=== PATIENT | male | born 1970 | race Caucasian/White ===

== ENCOUNTER → 2020-03-28 16:28 | Outpatient (CLI) | payer MEDICARE, SELFPAY ==
[2020-03-28 17:22] LABS: Absolute Lymphocyte Count 4.77 X10^3/uL (0.83-4.51); Absolute Neutrophil Count 6.4 X10^3/uL (2.0-7.7); Basophil# 0.05 X10^3/uL; Basophil% 0.4 % (0-1); Eosinophils% 0.8 % (0-5); Hematocrit 45.5 % (40-54); Hemoglobin 15.1 g/dL (13.0-16.5); Lymphocyte # 4.77 X10^3/ul (4.0); Lymphocyte % 37.7 % (19-41); Mean Corp Hgb Conc 33.2 g/dL (32-36); Mean Corpuscular Hgb 30.3 pg (27.0-32.0); Mean Corpuscular Volume 91.4 fL (80-94); Mean Platelet Vol. 10.4 fl (6.2-12.0); Monocyte# 1.29 X10^3/uL; Monocyte% 10.2 % (0-10); NRBC Flagged by Analyzer 0 % (0-5); Neutrophil # 6.39 X10^3/uL (2.7-7.7); Neutrophil % 50.6 % (47-70); Platelet Count 236 K/mm3 (150-450); RBC Distribution Width CV 12.7 % (11.6-14.6); Red Blood Count 4.98 M/mm3 (4.6-6.2); White Blood Count 12.6 K/mm3 (4.4-11.0)
[2020-03-28 17:44] LABS: ALB/GLOB Ratio 0.8 RATIO (0.9-2.4); AST(SGOT) 35 U/L (15-37); Alanine Aminotransfer ALT/SGPT 54 U/L (16-61); Albumin, Serum 3.7 g/dL (3.2-5.0); Alkaline Phosphatase 115 U/L (45-117); Anion Gap 6 (5-15); BUN 24 mg/dL (7-18); BUN/Creat Ratio 22.4 RATIO (10-20); CRP 3.55 mg/L (0.0-3.0); Calcium,Total 8.9 mg/dL (8.5-10.1); Chloride 109 mmol/L (98-107); Creatinine, Serum 1.07 mg/dL (0.70-1.30); EST Glomerular Filtration Rate 78 mL/min (>60); Est Glom Filt Rate - Afr Amer 95 mL/min (>60); Globulin 4.6 g/dL (2.2-4.2); Glucose 92 mg/dL (74-106); Potassium 4.1 mmol/L (3.5-5.1); Protein, Total 8.3 g/dL (6.4-8.2); Sodium Level 139 mmol/L (136-145)
[2020-03-28 17:58] LABS: Erythrocyte Sedimentation Rate 18 mm/hr (0-15)
== END ==
PROVIDERS: PCP Family Medicine; Visit Provider Family Medicine
DX: M54.9 Dorsalgia, unspecified (principal); G89.29 Other chronic pain; Z87.39 Personal history of other diseases of the musculoskeletal system and connective tissue
CPT/HCPCS: 36415; 80053; 85025; 85652; 86140

== ENCOUNTER 2021-06-25 10:19 | Outpatient (CLI) | payer MEDICARE, MEDICAID, SELFPAY ==
[2021-06-25 10:48] LABS: Absolute Lymphocyte Count 3.91 X10^3/uL (0.83-4.51); Absolute Neutrophil Count 3.5 X10^3/uL (2.0-7.7); Basophil# 0.06 X10^3/uL; Basophil% 0.7 % (0-1); Eosinophil# 0.09 X10^3/uL; Hematocrit 44.1 % (40-54); Hemoglobin 14.8 g/dL (13.0-16.5); Lymphocyte # 3.91 X10^3/ul (0.83-4.51); Lymphocyte % 44.2 % (19-41); Mean Corp Hgb Conc 33.6 g/dL (32-36); Mean Corpuscular Hgb 31.3 pg (27.0-32.0); Mean Corpuscular Volume 93.2 fL (80-94); Mean Platelet Vol. 10.3 fl (6.2-12.0); Monocyte# 1.24 X10^3/uL; NRBC Flagged by Analyzer 0 % (0-5); Neutrophil # 3.52 X10^3/uL (2.7-7.7); Neutrophil % 39.8 % (47-70); Platelet Count 171 K/mm3 (150-450); RBC Distribution Width CV 14.4 % (11.6-14.6); RBC Distribution Width SD 49.7 fl (35.1-43.9); Red Blood Count 4.73 M/mm3 (4.6-6.2); White Blood Count 8.9 K/mm3 (4.4-11.0)
[2021-06-25 11:05] LABS: Hemoglobin A1c 5.3 % (3.8-5.6)
[2021-06-25 11:08] LABS: ALB/GLOB Ratio 0.7 RATIO (0.9-2.4); AST(SGOT) 110 U/L (15-37); Alanine Aminotransfer ALT/SGPT 201 U/L (16-61); Albumin, Serum 3.4 g/dL (3.2-5.0); Alkaline Phosphatase 96 U/L (45-117); Anion Gap 6 (5-15); BUN 26 mg/dL (7-18); BUN/Creat Ratio 22.6 RATIO (10-20); Calcium,Total 8.9 mg/dL (8.5-10.1); Chloride 107 mmol/L (98-107); Cholesterol 156 mg/dL (200); Creatinine, Serum 1.15 mg/dL (0.70-1.30); EST Glomerular Filtration Rate 72 mL/min (>60); Est Glom Filt Rate - Afr Amer 87 mL/min (>60); GGTP 379 U/L (15-85); Globulin 4.6 g/dL (2.2-4.2); Glucose 89 mg/dL (74-106); High Density Lipoprotein 37 mg/dL; Potassium 4.6 mmol/L (3.5-5.1); Sodium Level 138 mmol/L (136-145); Triglycerides 258 mg/dL; Very Low Density Lipoprotein 52 mg/dL (5-40)
== END 2021-06-25 23:59 | disposition short-term general hospital (02) ==
LOC: PAVLAB 10:19
PROVIDERS: PCP Family Medicine; Referring Provider Family Medicine; Visit Provider Family Medicine
DX: B19.10 Unspecified viral hepatitis B without hepatic coma (principal); E74.39 Other disorders of intestinal carbohydrate absorption; E78.5 Hyperlipidemia, unspecified; Z51.81 Encounter for therapeutic drug level monitoring
CPT/HCPCS: 36415; 80053; 80061; 82977; 83036; 85025

== ENCOUNTER 2021-07-10 10:21 | Outpatient (CLI) | payer MEDICAID, SELFPAY ==
--- NOTE | 2021-07-10 10:27 | US_ITS ---
STUDY: SUPERFICIAL ULTRASOUND - LEFT POSTERIOR SHOULDER. REASON FOR EXAM: Male, 50 years old. PAIN, SWELLING IN AREA OF SCAR TECHNIQUE: A superficial ultrasound was performed with real-time and static ortega-scale imaging. COMPARISON: None. FINDINGS: The area of the scar along the posterior aspect of the shoulder was examined. No sonographic abnormality is seen. US/Ext Non Vasc Limited/Soft Tiss IMPRESSION: No sonographic abnormality is seen. Electronically Signed: Lennox Lim MD at 15:25 EST ,
== END 2021-07-10 23:59 | disposition home or self-care (01) ==
PROVIDERS: PCP Family Medicine; Referring Provider Family Medicine; Visit Provider Family Medicine
DX: M25.512 Pain in left shoulder (principal); L02.91 Cutaneous abscess, unspecified
CPT/HCPCS: 76882

== ENCOUNTER 2021-08-11 15:50 | Outpatient (CLI) | payer MEDICAID, SELFPAY ==
[2021-08-15 19:07] LABS: Testosterone, % Free 3.49 % (1.50-4.20); Testosterone, Free 25.27 ng/dL (5.00-21.00)
[2021-08-15 20:05] LABS: H. Pylori Antibody (IgG) 2.35 (0.00-0.79); Testosterone, Total 724 ng/dL (264-916)
== END 2021-08-11 23:59 | disposition home or self-care (01) ==
LOC: LAB 15:51
PROVIDERS: PCP Family Medicine; Referring Provider Family Medicine; Visit Provider Family Medicine
DX: E29.1 Testicular hypofunction (principal); A04.8 Other specified bacterial intestinal infections
CPT/HCPCS: 36415; 84402; 84403; 86677

== ENCOUNTER → 2022-02-25 | Outpatient (CLI) | payer MEDICARE, MEDICAID, SELFPAY ==
--- NOTE | 2022-02-25 07:00 | CT_ITS ---
STUDY: LOW DOSE CT LUNG CANCER SCREENING REASON FOR EXAM: Male, 51 years old. LUNG CANCER SCREENING. The patient smokes 1-2 packs per day for 37 years. RADIATION DOSAGE (If Supplied By Facility): CTDIvol = ( 3.02 ) mGy, DLP = ( 101.56 ) mGycm TECHNIQUE: No contrast was administered. Low dose technique was utilized (average mAS-38 and kVp 120). 1.25 mm axial source images with a slice interval of 1.25-mm were reconstructed in lung windows. 2.5 mm axial source images with a slice interval of 2.5-mm were reconstructed in lung windows. 5.0 mm axial source images with a slice interval of 5.0-mm were reconstructed in soft tissue windows. COMPARISON: None. NODULES: No suspicious nodules are seen. Emphysema: Hyperinflation. Mild increased linear markings in the superior segment of the right lower lobe suggestive of linear atelectasis and/or scarring. There is also evidence of mild linear scarring at the lung bases more prominent on the right side. Endobronchial lesion: None Aorta: Minimal atherosclerotic calcific plaques at the level of the aortic arch. CORONARY ARTERIES: Coronary artery calcification is seen. Heart: Unremarkable Pulmonary artery: Unremarkable Mediastinal nodes: Small mediastinal lymph nodes. Other chest and abdominal findings: CT/Low Dose CT Lung Screening IMPRESSION: Lung-RADS category 2 - Continue annual screening with LDCT in 12 months. IMPORTANT NOTES FOR USE: ACR Lung-RADS Version 1.1 Assessment Categories Release Date: 2018 Category: Coded 0-4 bases on nodule(s) with highest degree of suspicion. Negative screen is defined as categories 1 and 2; a positive screen is defined as categories 3 and 4. Category 3 and 4A nodules that are unchanged on interval CT should be coded as category 2, and individuals returned to screening in 12 months. Category 4X: Category 3 or 4 nodules with additional imaging findings that increase the suspicion of lung cancer, such as spiculation, GGN that doubles in size in 1 year, enlarged lymph notes, etc. Category Modifiers: S (significant finding unrelated to lung cancer) Electronically Signed: Lennox Lim MD at 14:46 EDT ,
== END | disposition home or self-care (01) ==
LOC: CT 06:56
PROVIDERS: PCP Family Medicine; Referring Provider Family Medicine; Visit Provider Family Medicine
DX: Z12.2 Encounter for screening for malignant neoplasm of respiratory organs (principal); F17.210 Nicotine dependence, cigarettes, uncomplicated
CPT/HCPCS: 71271

== ENCOUNTER → 2022-02-27 | Outpatient (CLI) | payer MEDICAID, SELFPAY ==
--- NOTE | 2022-02-27 07:10 | MRI_ITS ---
EXAM: MR HEAD WITHOUT AND WITH INTRAVENOUS CONTRAST CLINICAL INDICATION: VERTIGO, INCREASING SYNCOPAL EPISODES TECHNIQUE: Multiplanar and multisequence MR images of the brain were obtained without and with intravenous contrast. This report was created using [employer] Assistant report generation technology. CONTRAST: IV 17cc Clariscan COMPARISON: None. FINDINGS: BRAIN AND EXTRA-AXIAL SPACES: Small white matter T2 FLAIR hyperintensity in the left central lobe is nonspecific. No mass effects and no midline shift. No other focal signal abnormalities throughout the brain parenchyma. Normal ventricles and cisterns. No intra- or extra-axial hemorrhage. No evidence of acute infarct. There is preservation of the ortega/white matter interface. Posterior fossa structures are unremarkable. No hydrocephalus. SELLA: Unremarkable. Normal sella turcica, pituitary gland, infundibular stalk, optic chiasm and hypothalamus. AUDITORY SYSTEM: Unremarkable. The internal auditory canals are patent. BONES/JOINTS: Unremarkable. No discrete lytic or blastic abnormalities. SINUSES: Unremarkable as visualized. Clear. MASTOID AIR CELLS: Unremarkable as visualized. Clear. ORBITS: Unremarkable as visualized. Both globes, extraocular muscles, optic nerves and retrobulbar fat appear unremarkable. VASCULATURE: Unremarkable as visualized. Normal flow voids in the major intracranial circulation. MRI/Brain W/WO Contrast IMPRESSION: 1. No MRI evidence of acute or subacute ischemic infarct, intracranial mass or acute intracranial abnormality. 2. Small solitary T2 FLAIR hyperintensity focus in the left central lobe white matter is nonspecific gliosis. This is of questionable clinical significance. Electronically Signed: Darvin Arita MD at 9:26 EDT ,
== END | disposition home or self-care (01) ==
LOC: MRI 06:59
PROVIDERS: PCP Family Medicine; Referring Provider Family Medicine; Visit Provider Family Medicine
DX: R42 Dizziness and giddiness (principal); R55 Syncope and collapse
CPT/HCPCS: 70553; A9575

== ENCOUNTER → 2023-02-03 | Outpatient (CLI) | payer MEDICARE, SELFPAY ==
--- NOTE | 2023-02-03 14:35 | RAD_ITS ---
EXAM: XR LEFT KNEE COMPLETE, 4 OR MORE VIEWS CLINICAL INDICATION: PAIN TECHNIQUE: Four or more views of the left knee. COMPARISON: No relevant prior studies available. FINDINGS: BONES/JOINTS: Unremarkable. No acute fracture. No subluxation. Normal alignment. Preservation of the joint space. No sclerotic or destructive changes observed. SOFT TISSUES: Unremarkable. No soft tissue swelling or gas. No radiopaque foreign body. RAD/Knee 4 or More Views IMPRESSION: Negative left knee x-rays. Electronically Signed: Parish Diggs MD at 17:13 EDT ,
== END | disposition home or self-care (01) ==
PROVIDERS: PCP Family Medicine; Referring Provider Family Medicine; Visit Provider Family Medicine
DX: M25.562 Pain in left knee (principal)
CPT/HCPCS: 73564

== ENCOUNTER → 2024-02-15 | Outpatient (CLI) | payer MEDICARE, SELFPAY | END | disposition home or self-care (01) | PROVIDERS: PCP Family Medicine; Referring Provider Family Medicine; Visit Provider Family Medicine | DX: F19.20 Other psychoactive substance dependence, uncomplicated (principal) ==

== ENCOUNTER → 2024-02-24 | Outpatient (CLI) | payer MEDICARE, SELFPAY | END | disposition home or self-care (01) | LOC: BFHLAB 13:54 → LABSPEC 13:56 | PROVIDERS: PCP Family Medicine; Referring Provider Family Medicine; Visit Provider Family Medicine | DX: F19.10 Other psychoactive substance abuse, uncomplicated (principal) ==

== ENCOUNTER → 2024-03-16 | Outpatient (CLI) | payer MEDICARE, SELFPAY | END | disposition home or self-care (01) | PROVIDERS: PCP Family Medicine; Referring Provider Family Medicine; Visit Provider Family Medicine | DX: F19.10 Other psychoactive substance abuse, uncomplicated (principal) ==

== ENCOUNTER 2024-03-29 11:37 | Outpatient (CLI) | payer MEDICARE, SELFPAY | END 2024-03-29 23:59 | disposition home or self-care (01) | LOC: LABSPEC 11:38 | PROVIDERS: PCP Family Medicine; Referring Provider Family Medicine; Visit Provider Family Medicine | DX: F19.10 Other psychoactive substance abuse, uncomplicated (principal) ==

== ENCOUNTER → 2024-06-21 | Outpatient (CLI) | payer MEDICARE, SELFPAY | END | disposition home or self-care (01) | PROVIDERS: PCP Family Medicine; Visit Provider Family Medicine | DX: F19.10 Other psychoactive substance abuse, uncomplicated (principal) ==

== ENCOUNTER → 2024-06-26 | Outpatient (CLI) | payer MEDICARE, SELFPAY | END | disposition home or self-care (01) | LOC: BFHLAB 14:10 | PROVIDERS: PCP Family Medicine; Referring Provider Family Medicine; Visit Provider Family Medicine | DX: F19.10 Other psychoactive substance abuse, uncomplicated (principal) ==

== ENCOUNTER 2024-07-03 14:14 | Outpatient (CLI) | payer MEDICARE, SELFPAY | END 2024-07-03 23:59 | disposition home or self-care (01) | PROVIDERS: PCP Family Medicine; Referring Provider Family Medicine; Visit Provider Family Medicine | DX: F19.10 Other psychoactive substance abuse, uncomplicated (principal) ==

== ENCOUNTER 2024-07-11 13:01 | Outpatient (CLI) | payer MEDICARE, SELFPAY | END 2024-07-11 23:59 | disposition home or self-care (01) | LOC: BFHLAB 13:02 → LABSPEC 13:03 | PROVIDERS: PCP Family Medicine; Visit Provider Family Medicine | DX: F19.10 Other psychoactive substance abuse, uncomplicated (principal) ==

== ENCOUNTER → 2024-07-20 | Outpatient (CLI) | payer MEDICARE, SELFPAY | END | disposition home or self-care (01) | PROVIDERS: PCP Family Medicine; Referring Provider Family Medicine; Visit Provider Family Medicine | DX: F19.10 Other psychoactive substance abuse, uncomplicated (principal) ==

== ENCOUNTER → 2024-07-31 | Outpatient (CLI) | payer MEDICARE, SELFPAY | END | disposition home or self-care (01) | LOC: LABSPEC 15:06 | PROVIDERS: PCP Family Medicine; Referring Provider Family Medicine; Visit Provider Family Medicine | DX: F19.10 Other psychoactive substance abuse, uncomplicated (principal) ==

== ENCOUNTER → 2024-08-16 | Outpatient (CLI) | payer MEDICARE, SELFPAY | END | disposition home or self-care (01) | LOC: BFHLAB 14:28 → LABSPEC 14:29 | PROVIDERS: PCP Family Medicine; Visit Provider Family Medicine | DX: F19.10 Other psychoactive substance abuse, uncomplicated (principal) ==

== ENCOUNTER 2024-09-29 12:28 | Outpatient (CLI) | payer MEDICARE, SELFPAY ==
[2024-09-29 14:49] LABS: Amphetamine Urine NEGATIVE (<1000 ng/mL); Barbiturate Urine NEGATIVE (< 200 ng/mL); Benzodiazepine Urine NEGATIVE (< 200 ng/mL); Buprenorphine Urine NEGATIVE (< 200 ng/mL); Cocaine Urine NEGATIVE (< 300 ng/mL); Fentanyl, Urine NEGATIVE; Methadone Urine NEGATIVE (< 300 ng/mL); Opiates Urine NEGATIVE (< 300 ng/mL); Oxycodone, Urine NEGATIVE (< 100 ng/mL); PCP Urine NEGATIVE (< 25 ng/mL); THC Urine PRESUMPTIVE POSITIVE (< 50 ng/mL)
== END 2024-09-29 23:59 | disposition home or self-care (01) ==
LOC: LABSPEC 12:29
PROVIDERS: PCP Family Medicine; Referring Provider Family Medicine; Visit Provider Family Medicine
DX: F19.10 Other psychoactive substance abuse, uncomplicated (principal); R30.0 Dysuria
CPT/HCPCS: 80307; 87086

== ENCOUNTER 2024-10-12 12:30 | Outpatient (CLI) | payer MEDICARE, SELFPAY ==
[2024-10-12 15:48] LABS: Amphetamine Urine NEGATIVE (<1000 ng/mL); Barbiturate Urine NEGATIVE (< 200 ng/mL); Benzodiazepine Urine NEGATIVE (< 200 ng/mL); Buprenorphine Urine NEGATIVE (< 200 ng/mL); Cocaine Urine NEGATIVE (< 300 ng/mL); Fentanyl, Urine NEGATIVE; Methadone Urine NEGATIVE (< 300 ng/mL); Opiates Urine NEGATIVE (< 300 ng/mL); Oxycodone, Urine NEGATIVE (< 100 ng/mL); PCP Urine NEGATIVE (< 25 ng/mL); THC Urine PRESUMPTIVE POSITIVE (< 50 ng/mL)
== END 2024-10-12 23:59 | disposition home or self-care (01) ==
LOC: LABSPEC 12:31
PROVIDERS: PCP Family Medicine; Referring Provider Family Medicine; Visit Provider Family Medicine
DX: F19.10 Other psychoactive substance abuse, uncomplicated (principal)
CPT/HCPCS: 80307; 82570

== ENCOUNTER → 2024-11-15 | Outpatient (CLI) | payer MEDICARE, SELFPAY | END | disposition home or self-care (01) | LOC: LABSPEC 13:11 | PROVIDERS: PCP Family Medicine; Visit Provider Family Medicine | DX: F19.10 Other psychoactive substance abuse, uncomplicated (principal) ==

== ENCOUNTER 2024-11-20 18:33 | Outpatient (CLI) | payer MEDICARE, SELFPAY ==
[2024-11-20 20:10] LABS: Amphetamine Urine PRESUMPTIVE POSITIVE (<1000 ng/mL); Barbiturate Urine NEGATIVE (< 200 ng/mL); Benzodiazepine Urine NEGATIVE (< 200 ng/mL); Buprenorphine Urine NEGATIVE (< 200 ng/mL); Cocaine Urine NEGATIVE (< 300 ng/mL); Fentanyl, Urine NEGATIVE; Methadone Urine NEGATIVE (< 300 ng/mL); Opiates Urine NEGATIVE (< 300 ng/mL); Oxycodone, Urine NEGATIVE (< 100 ng/mL); PCP Urine NEGATIVE (< 25 ng/mL); THC Urine PRESUMPTIVE POSITIVE (< 50 ng/mL)
== END 2024-11-20 23:59 | disposition home or self-care (01) ==
PROVIDERS: PCP Family Medicine; Referring Provider Family Medicine; Visit Provider Family Medicine
DX: F19.10 Other psychoactive substance abuse, uncomplicated (principal)
CPT/HCPCS: 80307; 82570

== ENCOUNTER → 2024-11-27 | Outpatient (CLI) | payer MEDICARE, OTHER, SELFPAY ==
[2024-11-27 18:06] LABS: Hematocrit 42.5 % (40-54); Hemoglobin 14.6 g/dL (13.0-16.5); Immature Granulocytes Count 0.030 X10^3/uL (0.0-0.0); Mean Corp Hgb Conc 34.4 g/dL (32-36); Mean Corpuscular Volume 95.1 fL (80-94); Mean Platelet Vol. 10.7 fl (6.2-12.0); NRBC Flagged by Analyzer 0 % (0-5); Platelet Count 164 K/mm3 (150-450); RBC Distribution Width CV 13.7 % (11.6-14.6); RBC Distribution Width SD 48.1 fl (35.1-43.9); Red Blood Count 4.47 M/mm3 (4.6-6.2); White Blood Count 7.2 K/mm3 (4.4-11.0)
[2024-11-27 18:52] LABS: Barbiturate Urine NEGATIVE (< 200 ng/mL); Benzodiazepine Urine NEGATIVE (< 200 ng/mL); PCP Urine NEGATIVE (< 25 ng/mL); THC Urine PRESUMPTIVE POSITIVE (< 50 ng/mL)
[2024-11-30 16:09] LABS: PROEL- A/G Ratio 1.2 (0.7-1.7); PROEL- Albumin 3.7 g/dL (2.9-4.4); PROEL- Alpha-1 Globulin 0.2 g/dL (0.0-0.4); PROEL- Alpha-2 Globulin 0.9 g/dL (0.4-1.0); PROEL- Beta Globulin 1.0 g/dL (0.7-1.3); PROEL- Gamma Globulin 1.1 g/dL (0.4-1.8); PROEL- Globulin, Total 3.2 g/dL (2.2-3.9); PROEL- TOTAL PROTEIN 6.9 g/dL (6.0-8.5); PROEL-M-Spike Not Observed g/dL (Not Observed); PROELU- Albumin, Urine 22.0 % (.); PROELU- Alpha-1-Globulin,Ur 4.2 % (.); PROELU- Alpha-2-Globulin,Ur 18.8 % (.); PROELU- Beta Globulin, Ur 31.1 % (.); PROELU- Gamma Globulin, Ur 24.0 % (.); Total Protein, Ur 8.0 mg/dL (Not Estab.)
== END | disposition home or self-care (01) ==
LOC: BFHLAB 14:13
PROVIDERS: PCP Family Medicine; Visit Provider Family Medicine
DX: M89.8X9 Other specified disorders of bone, unspecified site (principal); F19.11 Other psychoactive substance abuse, in remission; R93.89 Abnormal findings on diagnostic imaging of other specified body structures; Z51.81 Encounter for therapeutic drug level monitoring
CPT/HCPCS: 36415; 80307; 84165; 84166; 85025

== ENCOUNTER → 2024-12-13 | Outpatient (CLI) | payer MEDICARE, OTHER, SELFPAY | END | disposition home or self-care (01) | LOC: LABSPEC 13:16 | PROVIDERS: PCP Family Medicine; Referring Provider Family Medicine; Visit Provider Family Medicine | DX: F19.10 Other psychoactive substance abuse, uncomplicated (principal) ==

== ENCOUNTER → 2024-12-19 | Outpatient (CLI) | payer MEDICARE, OTHER, SELFPAY | END | disposition home or self-care (01) | LOC: LABSPEC 10:54 | PROVIDERS: PCP Family Medicine; Visit Provider Family Medicine | DX: F19.10 Other psychoactive substance abuse, uncomplicated (principal) ==

== ENCOUNTER → 2024-12-27 | Outpatient (CLI) | payer MEDICARE, OTHER, SELFPAY | END | disposition home or self-care (01) | LOC: LABSPEC 14:42 | PROVIDERS: PCP Family Medicine; Visit Provider Family Medicine | DX: F19.10 Other psychoactive substance abuse, uncomplicated (principal) ==

== ENCOUNTER 2025-01-03 16:18 | Outpatient (CLI) | payer MEDICARE, OTHER, SELFPAY | END 2025-01-03 23:59 | disposition home or self-care (01) | PROVIDERS: PCP Family Medicine; Visit Provider Family Medicine | DX: F19.10 Other psychoactive substance abuse, uncomplicated (principal); R30.0 Dysuria; Z20.2 Contact with and (suspected) exposure to infections with a predominantly sexual mode of transmission | CPT/HCPCS: 87086; 87088; 87491; 87591 ==

== ENCOUNTER → 2025-01-10 | Outpatient (CLI) | payer MEDICARE, SELFPAY ==
[2025-01-10 17:38] LABS: Creatinine, Urine (random) 16.10 mg/dL (39.00-259.00)
[2025-01-10 17:39] LABS: Barbiturate Urine NEGATIVE (< 200 ng/mL); Benzodiazepine Urine NEGATIVE (< 200 ng/mL); PCP Urine NEGATIVE (< 25 ng/mL); THC Urine PRESUMPTIVE POSITIVE (< 50 ng/mL)
== END | disposition home or self-care (01) ==
LOC: LABSPEC 15:30
PROVIDERS: PCP Family Medicine; Referring Provider Family Medicine; Visit Provider Family Medicine
DX: F19.10 Other psychoactive substance abuse, uncomplicated (principal)
CPT/HCPCS: 80307; 82570

== ENCOUNTER → 2025-01-15 | Outpatient (CLI) | payer MEDICARE, OTHER, SELFPAY | END | disposition home or self-care (01) | LOC: LABSPEC 14:50 | PROVIDERS: PCP Family Medicine; Visit Provider Family Medicine | DX: F19.10 Other psychoactive substance abuse, uncomplicated (principal) ==

== ENCOUNTER → 2025-01-31 | Outpatient (CLI) | payer MEDICARE, OTHER, SELFPAY ==
[2025-01-31 18:17] LABS: Creatinine, Urine (random) 160.00 mg/dL (39.00-259.00)
[2025-01-31 18:18] LABS: Barbiturate Urine NEGATIVE (< 200 ng/mL); Benzodiazepine Urine NEGATIVE (< 200 ng/mL); PCP Urine NEGATIVE (< 25 ng/mL); THC Urine PRESUMPTIVE POSITIVE (< 50 ng/mL)
== END | disposition home or self-care (01) ==
LOC: LABSPEC 15:50
PROVIDERS: PCP Family Medicine; Visit Provider Family Medicine
DX: F19.10 Other psychoactive substance abuse, uncomplicated (principal)
CPT/HCPCS: 80307; 82570

== ENCOUNTER → 2025-02-12 | Outpatient (CLI) | payer MEDICARE, SELFPAY ==
[2025-02-12 19:13] LABS: Barbiturate Urine NEGATIVE (< 200 ng/mL); Benzodiazepine Urine NEGATIVE (< 200 ng/mL); PCP Urine NEGATIVE (< 25 ng/mL); THC Urine PRESUMPTIVE POSITIVE (< 50 ng/mL)
[2025-02-13 10:12] LABS: Creatinine, Urine (random) 102.00 mg/dL (39.00-259.00)
== END | disposition home or self-care (01) ==
PROVIDERS: PCP Family Medicine; Referring Provider Family Medicine; Visit Provider Family Medicine
DX: F19.10 Other psychoactive substance abuse, uncomplicated (principal)
CPT/HCPCS: 80307; 82570

== ENCOUNTER → 2025-02-21 | Outpatient (CLI) | payer MEDICARE, SELFPAY ==
[2025-02-21 16:48] LABS: Barbiturate Urine NEGATIVE (< 200 ng/mL); Benzodiazepine Urine NEGATIVE (< 200 ng/mL); PCP Urine NEGATIVE (< 25 ng/mL); THC Urine PRESUMPTIVE POSITIVE (< 50 ng/mL)
[2025-02-21 17:29] LABS: Creatinine, Urine (random) 129.00 mg/dL (39.00-259.00)
== END | disposition home or self-care (01) ==
PROVIDERS: PCP Family Medicine; Referring Provider Family Medicine; Visit Provider Family Medicine
DX: F19.10 Other psychoactive substance abuse, uncomplicated (principal)
CPT/HCPCS: 80307; 82570

== ENCOUNTER → 2025-03-01 | Outpatient (CLI) | payer MEDICARE, SELFPAY ==
[2025-03-01 23:04] LABS: Barbiturate Urine NEGATIVE (< 200 ng/mL); Benzodiazepine Urine NEGATIVE (< 200 ng/mL); PCP Urine NEGATIVE (< 25 ng/mL); THC Urine PRESUMPTIVE POSITIVE (< 50 ng/mL)
[2025-03-01 23:18] LABS: Creatinine, Urine (random) 174.00 mg/dL (39.00-259.00)
== END | disposition home or self-care (01) ==
PROVIDERS: PCP Family Medicine; Referring Provider Family Medicine; Visit Provider Family Medicine
DX: F19.10 Other psychoactive substance abuse, uncomplicated (principal)
CPT/HCPCS: 80307; 82570

== ENCOUNTER → 2025-03-08 | Outpatient (CLI) | payer MEDICARE, SELFPAY ==
[2025-03-08 13:56] LABS: Creatinine, Urine (random) 111.00 mg/dL (39.00-259.00)
[2025-03-08 14:05] LABS: Barbiturate Urine NEGATIVE (< 200 ng/mL); Benzodiazepine Urine NEGATIVE (< 200 ng/mL); PCP Urine NEGATIVE (< 25 ng/mL); THC Urine PRESUMPTIVE POSITIVE (< 50 ng/mL)
== END | disposition home or self-care (01) ==
PROVIDERS: PCP Family Medicine; Referring Provider Family Medicine; Visit Provider Family Medicine
DX: F19.10 Other psychoactive substance abuse, uncomplicated (principal)
CPT/HCPCS: 80307; 82570

== ENCOUNTER → 2025-03-15 | Outpatient (CLI) | payer MEDICARE, SELFPAY ==
[2025-03-15 14:40] LABS: Creatinine, Urine (random) 55.90 mg/dL (39.00-259.00)
[2025-03-15 15:21] LABS: Barbiturate Urine NEGATIVE (< 200 ng/mL); Benzodiazepine Urine NEGATIVE (< 200 ng/mL); PCP Urine NEGATIVE (< 25 ng/mL); THC Urine PRESUMPTIVE POSITIVE (< 50 ng/mL)
== END | disposition home or self-care (01) ==
LOC: LABSPEC 12:56
PROVIDERS: PCP Family Medicine; Referring Provider Family Medicine; Visit Provider Family Medicine
DX: F19.10 Other psychoactive substance abuse, uncomplicated (principal)
CPT/HCPCS: 80307; 82570

== ENCOUNTER → 2025-03-21 | Outpatient (CLI) | payer MEDICARE, SELFPAY ==
[2025-03-21 17:18] LABS: Creatinine, Urine (random) 95.80 mg/dL (39.00-259.00)
[2025-03-21 17:20] LABS: Barbiturate Urine NEGATIVE (< 200 ng/mL); Benzodiazepine Urine NEGATIVE (< 200 ng/mL); PCP Urine NEGATIVE (< 25 ng/mL); THC Urine PRESUMPTIVE POSITIVE (< 50 ng/mL)
== END | disposition home or self-care (01) ==
PROVIDERS: PCP Family Medicine; Referring Provider Family Medicine; Visit Provider Family Medicine
DX: F19.10 Other psychoactive substance abuse, uncomplicated (principal)
CPT/HCPCS: 80307; 82570

== ENCOUNTER → 2025-03-26 | Outpatient (CLI) | payer MEDICARE, SELFPAY ==
[2025-03-26 18:24] LABS: Creatinine, Urine (random) 50.50 mg/dL (39.00-259.00)
[2025-03-26 18:41] LABS: Barbiturate Urine NEGATIVE (< 200 ng/mL); Benzodiazepine Urine NEGATIVE (< 200 ng/mL); PCP Urine NEGATIVE (< 25 ng/mL); THC Urine PRESUMPTIVE POSITIVE (< 50 ng/mL)
== END | disposition home or self-care (01) ==
LOC: LABSPEC 16:24
PROVIDERS: PCP Family Medicine; Visit Provider Family Medicine
DX: F19.10 Other psychoactive substance abuse, uncomplicated (principal)
CPT/HCPCS: 80307; 82570

== ENCOUNTER → 2025-04-02 | Outpatient (CLI) | payer MEDICARE, SELFPAY ==
[2025-04-02 15:51] LABS: Barbiturate Urine NEGATIVE (< 200 ng/mL); Benzodiazepine Urine NEGATIVE (< 200 ng/mL); PCP Urine NEGATIVE (< 25 ng/mL); THC Urine PRESUMPTIVE POSITIVE (< 50 ng/mL)
[2025-04-02 16:03] LABS: Creatinine, Urine (random) 69.60 mg/dL (39.00-259.00)
== END | disposition home or self-care (01) ==
LOC: LABSPEC 13:08
PROVIDERS: PCP Family Medicine; Visit Provider Family Medicine
DX: F19.10 Other psychoactive substance abuse, uncomplicated (principal)
CPT/HCPCS: 80307; 82570

== ENCOUNTER → 2025-04-09 | Outpatient (CLI) | payer MEDICARE, SELFPAY ==
[2025-04-09 15:44] LABS: Barbiturate Urine NEGATIVE (< 200 ng/mL); Benzodiazepine Urine NEGATIVE (< 200 ng/mL); PCP Urine NEGATIVE (< 25 ng/mL); THC Urine PRESUMPTIVE POSITIVE (< 50 ng/mL)
[2025-04-09 15:56] LABS: Creatinine, Urine (random) 54.10 mg/dL (39.00-259.00)
== END | disposition home or self-care (01) ==
LOC: LABSPEC 13:08
PROVIDERS: PCP Family Medicine; Visit Provider Family Medicine
DX: F19.10 Other psychoactive substance abuse, uncomplicated (principal)
CPT/HCPCS: 80307; 82570

== ENCOUNTER → 2025-04-16 | Outpatient (CLI) | payer MEDICARE, SELFPAY | END | disposition home or self-care (01) | PROVIDERS: PCP Family Medicine; Visit Provider Family Medicine | DX: F19.10 Other psychoactive substance abuse, uncomplicated (principal) ==

== ENCOUNTER → 2025-05-02 | Outpatient (CLI) | payer MEDICARE, SELFPAY | END | disposition home or self-care (01) | PROVIDERS: PCP Family Medicine; Visit Provider Family Medicine | DX: F19.10 Other psychoactive substance abuse, uncomplicated (principal) ==

== ENCOUNTER → 2025-05-07 | Outpatient (CLI) | payer MEDICARE, SELFPAY | END | disposition home or self-care (01) | PROVIDERS: PCP Family Medicine; Visit Provider Family Medicine | DX: F19.10 Other psychoactive substance abuse, uncomplicated (principal) ==